=== PATIENT | male | born 2000 | race Asian ===

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

== ENCOUNTER → 2020-08-30 | Outpatient (CLI) | payer OTHER, SELFPAY | LOC: M LAB 12:24 | PROVIDERS: ATTEND Physician Assistant Medical | DX: Z11.1 Encounter for screening for respiratory tuberculosis (principal) ==

== ENCOUNTER → 2022-03-27 | Outpatient (REF) ==
[2022-03-27 13:47] LABS: RSV AMPLIFICATION NEGATIVE (NEGATIVE)
== END ==
LOC: M LABSMTC 10:58
PROVIDERS: ATTEND Family Medicine
DX: Z20.818 Contact with and (suspected) exposure to other bacterial communicable diseases (principal)

== ENCOUNTER 2022-09-28 19:29 | Emergency (ER) | payer OTHER ==
[~2022-09-28] VITALS: Ht 88.9 cm; Wt 61.5 kg
[2022-09-28] MEDS ORDERED: RABIES IMMUNE GLOBULIN 1500 INTERNATIONAL UNIT/5ML VIAL IM.IMMUN ONE (22:10)
[2022-09-28] MEDS ORDERED: RABIES VACCINE HUMAN 2.5 INTERNATIONAL UNITS/ML VIAL IM.IMMUN ONE (22:10)
[2022-09-28 22:45] VITALS: BP 145/83; TEMP 98.1; O2SAT 100
== END 2022-09-28 22:46 | disposition home or self-care (01) ==
LOC: M ED 19:29
DX: Z29.14 Encounter for prophylactic rabies immune globulin (principal)

== ENCOUNTER 2022-10-01 21:25 | Emergency (ER) | payer OTHER ==
[~2022-10-01] VITALS: Ht 180.3 cm; Wt 62.0 kg
[2022-10-01] MEDS ORDERED: RABIES VACCINE HUMAN 2.5 INTERNATIONAL UNITS/ML VIAL IM ONE (22:20)
[2022-10-01 22:35] VITALS: BP 118/78; TEMP 97.9; O2SAT 99
== END 2022-10-01 22:39 | disposition home or self-care (01) ==
LOC: M ED 21:25
DX: Z29.14 Encounter for prophylactic rabies immune globulin (principal)

== ENCOUNTER → 2023-01-10 | Outpatient (REF) | LOC: M EMP 08:55 | PROVIDERS: ATTEND Family Medicine | DX: Z11.52 Encounter for screening for COVID-19 (principal) ==